=== PATIENT | male | born 1960 | race American Indian/Alaskan Native ===

== ENCOUNTER 2021-02-10 09:59 | Emergency (ER) | payer SELFPAY ==
[2021-02-10] MEDS ORDERED: Aspirin 81 MG Tab.Chew PO ONE (10:08)
--- NOTE | 2021-02-10 10:34 | EDM.PDOC ---
ED HPI GENERAL MEDICAL PROBLEM - General Chief Complaint: Chest Pain Stated Complaint: CHEST PAIN/HISTORY OF STROKE Time Seen by Provider: 02/10/21 10:05 Source of Information: Reports: Patient History Limitations: Reports: No Limitations - History of Present Illness INITIAL COMMENTS - FREE TEXT/NARRATIVE: This 60 yo male patient reports to the ED with increased shortness of breath and chest pain. The patient reports his symptoms started this morning, but have continued to get worse. The patient reports no similar previous events. The patient reports his current chest pain is located in the center of his chest and goes to the left jaw. The patient reports his pain is more of a "burning" up to his throat. Onset: Today Duration: Hour(s): Location: Reports: Chest Quality: Reports: Ache, Burning Severity: Moderate Improves with: Reports: None Worsens with: Reports: None Context: Reports: Other Associated Symptoms: Reports: No Other Symptoms - Related Data Allergies Allergy/AdvReac Type Severity Reaction Status Date / Time No Known Allergies Allergy Verified 02/10/21 10:52 ED ROS GENERAL - Review of Systems Review Of Systems: Comprehensive ROS is negative, except as noted in HPI. ED EXAM, GENERAL - Physical Exam Exam: See Below Exam Limited By: No Limitations General Appearance: Alert, WD/WN, Anxious, Moderate Distress Eye Exam: Bilateral Eye: EOMI, Normal Inspection, PERRL Ears: Normal External Exam, Normal Canal, Hearing Grossly Normal, Normal TMs Nose: Normal Inspection, Normal Mucosa, No Blood Throat/Mouth: Normal Inspection, Normal Lips, Normal Teeth, Normal Gums, Normal Oropharynx, Normal Voice, No Airway Compromise Head: Atraumatic, Normocephalic Neck: Normal Inspection, Supple, Non-Tender, Full Range of Motion Respiratory/Chest: No Respiratory Distress, Lungs Clear, Normal Breath Sounds, No Accessory Muscle Use, Chest Non-Tender Cardiovascular: Normal Peripheral Pulses, Regular Rate, Rhythm, No Edema, No Gallop, No JVD, No Murmur, No Rub GI/Abdominal: Normal Bowel Sounds, Soft, Non-Tender, No Organomegaly, No Distention, No Abnormal Bruit, No Mass (Male) Exam: Deferred Rectal (Males) Exam: Deferred Back Exam: Normal Inspection, Full Range of Motion, NT Extremities: Normal Inspection, Normal Range of Motion, Non-Tender, Normal Capillary Refill, No Pedal Edema Neurological: Alert, Oriented, CN II-XII Intact, Normal Cognition, Normal Gait, Normal Reflexes, No Motor/Sensory Deficits Psychiatric: Normal Affect, Normal Mood Skin Exam: Warm, Dry, Intact, Normal Color, No Rash Lymphatic: No Adenopathy #1 Interpretation EKG Date: 02/10/21 Time: 10:23 Rhythm: NSR Rate (Beats/Min): 98 [place]: Normal P-Wave: Present QRS: Normal ST-T: Normal QT: Normal Comparison: NA - No Prior EKG Course - Vital Signs Last Recorded V/S: Last Vital Signs Temp 96.9 F 02/10/21 10:13 Pulse 121 H 02/10/21 10:13 Resp 28 H 02/10/21 10:13 BP 193/113 H 02/10/21 10:13 Pulse Ox 121 H 02/10/21 10:13 - Orders/Labs/Meds Orders: Active Orders 24 hr Category Date Time Status EKG Documentation Completion [RC] STAT Care 02/10/21 10:04 Ordered CULTURE BLOOD [BC] Stat Lab 02/10/21 10:04 Ordered D-DIMER QUANTITATIVE [COAG] Stat Lab 02/10/21 10:08 Ordered INR,PT,PROTHROMBIN TIME [COAG] Stat Lab 02/10/21 10:08 Ordered Heparin Sodium/0.45% NaCl [Heparin 25,000 Units in 1/2 Med 02/10/21 11:30 Ordered NS 500 ML] 25,000 units in 500 ml IV TITRATE Medication Orders Heparin Sodium/Sodium Chloride (Heparin 25,000 Units In 1/2 Ns 500 Ml) 25,000 units in 500 mls @ 22.861 mls/hr IV TITRATE KESHA Labs: Laboratory Tests 02/10/21 02/10/21 02/10/21 Range/Units 10:12 10:18 10:18 WBC 15.2 H (5.0-10.0) 10^3/uL RBC 6.06 (4.6-6.2) 10^6/uL Hgb 17.9 (14.0-18.0) g/dL Hct 52.9 (40.0-54.0) % MCV 87.3 (80-100) fL MCH 29.5 (27.0-34.0) pg MCHC 33.8 (33.0-35.0) g/dL Plt Count 221 (150-450) 10^3/uL Neut % (Auto) 85.8 H (42.2-75.2) % Lymph % (Auto) 7.0 L (20.5-50.1) % [place] % (Auto) 6.8 (2-8) % Eos % (Auto) 0.3 L (1.0-3.0) % Baso % (Auto) 0.1 (0.0-1.0) % PT (9.0-12.0) SEC INR (0.9-1.2) Sodium 139 (136-145) mmol/L Potassium 4.0 (3.5-5.1) mmol/L Chloride 102 (98-107) mmol/L Carbon Dioxide 26 (21-32) mmol/L Anion Gap 15.0 H (7-13) mEq/L BUN 21 H (7-18) mg/dL Creatinine 1.42 H (0.70-1.30) mg/dL Est Cr Clr Drug Dosing 53.01 mL/min Estimated GFR (MDRD) 51 BUN/Creatinine Ratio 14.8 (No establ ref range) Glucose 407 H* (70-99) mg/dL Calcium 8.7 (8.5-10.1) mg/dL Total Bilirubin 0.4 (0.2-1.0) mg/dL AST 20 (15-37) U/L ALT 27 (16-63) U/L Alkaline Phosphatase 117 H (46-116) U/L Troponin I High Sens 413 H* (<=76) pg/mL Total Protein 7.2 (6.4-8.2) g/dL Albumin 3.3 L (3.4-5.0) g/dL Globulin 3.9 Albumin/Globulin Ratio 0.85 Influenza Type A RNA Negative (NEGATIVE) Influenza Type B RNA Negative (NEGATIVE) SARS-CoV-2 RNA (CARRIE) Negative (NEGATIVE) 02/10/21 Range/Units 10:48 WBC (5.0-10.0) 10^3/uL RBC (4.6-6.2) 10^6/uL Hgb (14.0-18.0) g/dL Hct (40.0-54.0) % MCV (80-100) fL MCH (27.0-34.0) pg MCHC (33.0-35.0) g/dL Plt Count (150-450) 10^3/uL Neut % (Auto) (42.2-75.2) % Lymph % (Auto) (20.5-50.1) % [place] % (Auto) (2-8) % Eos % (Auto) (1.0-3.0) % Baso % (Auto) (0.0-1.0) % PT 10.5 (9.0-12.0) SEC INR 1.0 (0.9-1.2) Sodium (136-145) mmol/L Potassium (3.5-5.1) mmol/L Chloride (98-107) mmol/L Carbon Dioxide (21-32) mmol/L Anion Gap (7-13) mEq/L BUN (7-18) mg/dL Creatinine (0.70-1.30) mg/dL Est Cr Clr Drug Dosing mL/min Estimated GFR (MDRD) BUN/Creatinine Ratio (No establ ref range) Glucose (70-99) mg/dL Calcium (8.5-10.1) mg/dL Total Bilirubin (0.2-1.0) mg/dL AST (15-37) U/L ALT (16-63) U/L Alkaline Phosphatase (46-116) U/L Troponin I High Sens (<=76) pg/mL Total Protein (6.4-8.2) g/dL Albumin (3.4-5.0) g/dL Globulin Albumin/Globulin Ratio Influenza Type A RNA (NEGATIVE) Influenza Type B RNA (NEGATIVE) SARS-CoV-2 RNA (CARRIE) (NEGATIVE) Meds: Medications Generic Name Dose Route Start Last Admin Trade Name Freq PRN Reason Stop Dose Admin Heparin Sodium/Sodium Chloride 25,000 units in 500 mls @ 22.861 mls/hr 0 02/10/21 11:30 Heparin 25,000 Units In 1/2 Ns 500 Ml IV TITRATE KESHA 12 UNITS/KG/HR Discontinued Medications Generic Name Dose Route Start Last Admin Trade Name Freq PRN Reason Stop Dose Admin Aspirin 324 mg 02/10/21 10:08 02/10/21 10:52 Aspirin 81 Mg Tab.Chew PO 02/10/21 10:09 324 mg ONETIME ONE Administration Heparin Sodium (Porcine) 4,000 units 02/10/21 11:19 Heparin Sodium 5,000 Units/Ml Vial IVPUSH 02/10/21 11:20 .BOLUS ONE Departure - Departure Time of Disposition: 11:30 Disposition: DC/Tfer to Acute Hospital 02 Reason for Transfer *Q: Other Condition: Fair Clinical Impression: NSTEMI (non-ST elevated myocardial infarction), Elevated troponin Forms: ED Department Discharge, Interfacility Transfer EMTALA Care Plan Goals: Discussed the patient's history, examination, lab results, x-ray results and treatments with Dr. Lloyd. Dr. Lloyd accepted the patient for continued evaluation and management as an inpatient at [facility] in [place]. The patient will be transported by [facility]. Sepsis Event Note (ED) - Evaluation Sepsis Screening Result: No Definite Risk - Focused Exam Vital Signs: Vital Signs Temp Pulse Resp BP Pulse Ox 02/10/21 10:13 96.9 F 121 H 28 H 193/113 H 121 H - My Orders Last 24 Hours: My Active Orders 02/10/21 10:04 EKG Documentation Completion [RC] STAT CULTURE BLOOD [BC] Stat 02/10/21 10:08 D-DIMER QUANTITATIVE [COAG] Stat INR,PT,PROTHROMBIN TIME [COAG] Stat 02/10/21 11:30 Heparin Sodium/0.45% NaCl [Heparin 25,000 Units in 1/2 NS 500 ML] 25,000 units in 500 ml IV TITRATE - Assessment/Plan Last 24 Hours: My Active Orders 02/10/21 10:04 EKG Documentation Completion [RC] STAT CULTURE BLOOD [BC] Stat 02/10/21 10:08 D-DIMER QUANTITATIVE [COAG] Stat INR,PT,PROTHROMBIN TIME [COAG] Stat 02/10/21 11:30 Heparin Sodium/0.45% NaCl [Heparin 25,000 Units in 1/2 NS 500 ML] 25,000 units in 500 ml IV TITRATE
--- NOTE | 2021-02-10 10:59 | CR ---
PROCEDURE INFORMATION: Exam: XR Chest Exam date and time: 02/10/2021 10:21 AM Age: 60 years old Clinical indication: Chest pain TECHNIQUE: Imaging protocol: XR of the chest. Views: 1 view. COMPARISON: No relevant prior studies available. FINDINGS: Lungs: Bilateral central bronchial wall thickening with prominence of the interstitial markings in both lungs. Questionable septal line formation. No fissural thickening. No focal peripheral lung consolidation, air bronchogram formation, or silhouette sign. Pleural spaces: No pleural effusion or pneumothorax. Heart/Mediastinum: The cardiac silhouette is not enlarged. The mediastinal contours are normal. Bones/joints: No acute osseous abnormality. IMPRESSION: Bronchial/interstitial edema or inflammation.
[2021-02-10 11:18] LABS: CORONAVIRUS COVID-19 NAA NEGATIVE (NEGATIVE)
[2021-02-10] MEDS ORDERED: Heparin Sodium 5,000 Units/ML Vial IVPUSH ONE (11:19)
[2021-02-10] MEDS ORDERED: Heparin Sodium/0.45% NaCl 25,000 UNITS/500 ML BAG IV SCH (11:30)
== END 2021-02-10 12:05 ==
LOC: DL.ED 09:59
DX: I21.4 Non-ST elevation (NSTEMI) myocardial infarction (principal); R79.89 Other specified abnormal findings of blood chemistry; Z20.822 Contact with and (suspected) exposure to COVID-19
CPT/HCPCS: 0240U; 36415; 71045; 80053; 84484; 85025; 85379; 85610; 87040; 93005; 96365; 99285; A9270; J1644

== ENCOUNTER 2023-07-08 11:41 | Emergency (ER) | payer BC, MEDICAID ==
[2023-07-08] MEDS ORDERED: Sodium Chloride 0.9% 10 ML Syringe FLUSH PRN (12:18)
[2023-07-08 12:39] LABS: HEMATOCRIT 50.5 % (40.0-54.0); HEMOGLOBIN 16.5 g/dL (14.0-18.0); MEAN CORPUSCULAR HEMOGLOBIN 27.5 pg (27.0-34.0); MEAN CORPUSCULAR HGB CONC 32.7 g/dL (33.0-35.0); MEAN CORPUSCULAR VOLUME 84.2 fL (80-100); PLATELET COUNT,PLT 207 10^3/uL (150-450); WHITE BLOOD CELL COUNT,WBC 10.2 10^3/uL (5.0-10.0)
[2023-07-08 12:42] LABS: BASOPHILS PERCENT AUTO 0.2 % (0.0-1.0); EOSINOPHILS PERCENT AUTO 10.9 % (1.0-3.0); LYMPHOCYTES PERCENT AUTO 16.2 % (20.5-50.1); MONOCYTES PERCENT AUTO 11.7 % (2-8)
[2023-07-08 12:56] LABS: ANION GAP 10.5 mEq/L (7-13); BLOOD UREA NITROGEN,BUN 20 mg/dL (7-18); CALCIUM 9.5 mg/dL (8.5-10.1); CARBON DIOXIDE,CO2 29 mmol/L (21-32); CHLORIDE,CL 103 mmol/L (98-107); GLUCOSE RANDOM 117 mg/dL (70-99); POTASSIUM,K 4.5 mmol/L (3.5-5.1); SODIUM,NA 138 mmol/L (136-145)
[2023-07-08 13:01] LABS: C-REACTIVE PROTEIN < 0.50 ng/dL (<=0.50); ESTIMATED GFR 49 mL/min (>=60)
[2023-07-08 13:03] LABS: LACTIC ACID 1.6 mmol/L (0.4-2.0)
[2023-07-08] MEDS ORDERED: diphenhydrAMINE 50 MG/ML SDV IVPUSH ONE (13:06)
[2023-07-08 13:19] LABS: EOSINOPHILS PERCENT MAN 9 % (1-3); LYMPHOCYTES PERCENT MAN 14 % (20-50); MONOCYTES PERCENT MAN 15 % (2-8); SEG NEUTROPHILS PERCENT MAN 62 % (42-75)
== END 2023-07-08 15:42 | disposition home or self-care (01) ==
LOC: DL.ED 11:41
DX: E11.621 Type 2 diabetes mellitus with foot ulcer (principal); B86 Scabies; I11.0 Hypertensive heart disease with heart failure; I50.9 Heart failure, unspecified; I25.2 Old myocardial infarction; E78.00 Pure hypercholesterolemia, unspecified; Z79.84 Long term (current) use of oral hypoglycemic drugs; Z79.899 Other long term (current) drug therapy
CPT/HCPCS: 36415; 73700-LT; 80048; 83605; 85025; 86140; 87070; 87077; 87186; 96365; 96366; 96375; 99283-25; 99284; J1200; J3370; J3490; J7050

== ENCOUNTER 2025-05-03 11:34 | Emergency (ER) | payer MEDICAID ==
[2025-05-03] MEDS: Take Home: Doxycycline 100 MG Cap, 4 Cap Pack PO ONE (12:04)
== END 2025-05-03 12:16 | disposition home or self-care (01) ==
LOC: DL.ED 11:34
DX: E11.621 Type 2 diabetes mellitus with foot ulcer (principal); L97.529 Non-pressure chronic ulcer of other part of left foot with unspecified severity; I11.0 Hypertensive heart disease with heart failure; I50.9 Heart failure, unspecified; E78.00 Pure hypercholesterolemia, unspecified; I25.2 Old myocardial infarction; J44.9 Chronic obstructive pulmonary disease, unspecified; Z95.1 Presence of aortocoronary bypass graft; Z79.899 Other long term (current) drug therapy
CPT/HCPCS: 99282; 99283; A9270